=== PATIENT | male | born 1990 | race Caucasian/White ===

== ENCOUNTER 2020-07-06 17:27 | Inpatient (IN) | payer OTHER ==
[2020-07-06 18:15] LABS: #Basophils 0.1 10x3/uL (0.0-0.2); #Monocytes 1.1 10x3/uL (0.0-1.1); #Neutrophils 15.7 10x3/uL (1.5-8.4); %Basophils 0.3 % (0.0-2.0); %Monocytes 6.2 % (0.0-10.0); %Neutrophils 89.8 % (40.0-75.0); Hemoglobin 15.1 g/dL (13.5-17.5); Mean Corpuscular Hemoglobin 32.3 pg (27.0-33.0); Mean Corpuscular Volume 92.3 fl (81.2-95.1); Mean Platelet Volume 10.6 fl (7.4-10.4); Platelet Count 76 10x3/uL (150-450); RBC Distribution Width 14.7 % (11.5-14.5); Red Blood Cell (RBC) Count 4.68 10x6/uL (4.32-5.72); White Blood Cell (WBC) Count 17.4 10x3/uL (3.5-10.5)
[2020-07-06 18:20] LABS: ALT (SGPT) 47 U/L (8-55); AST (SGOT) 65 U/L (5-34); Alkaline Phosphatase 72 U/L (40-110); Anion Gap 20 mmol/L (10-20); BUN (Urea Nitrogen) 23 mg/dL (8.9-20.6); Bilirubin, Total 1.2 mg/dL (0.2-1.2); Calc. Creatinine Clearance 0 mL/min (70-130); Calcium 8.6 mg/dL (7.8-10.44); Carbon Dioxide 17 mmol/L (22-29); Chloride 101 mmol/L (98-107); Glucose 140 mg/dL (70-105); Potassium 3.5 mmol/L (3.5-5.1); Sodium 134 mmol/L (136-145)
[2020-07-06] MEDS ORDERED: Ondansetron PF 4 MG/2 ML Vial ONE (18:45)
[2020-07-06] MEDS ORDERED: cefTRIAXone\\ROCEPHIN 1 GM VIAL ONE (18:46)
[2020-07-06] MEDS ORDERED: Pantoprazole 40 MG VIAL ONE ×2 (18:46→18:50)
[2020-07-06] MEDS ORDERED: Octreotide Acetate 50 MCG/ML AMP ONE (18:47)
[2020-07-06] MEDS ORDERED: Octreotide Acetate 100 MCG/ML VIAL ONE ×3 (18:47→18:58)
[2020-07-06 20:35] LABS: SARS-CoV-2 NAA Rapid Test Not Detected (NotDetected)
[2020-07-06] MEDS ORDERED: Pantoprazole 80 MG in Sodium Chloride 0.9% 100 ML IVP SCH (21:00)
[2020-07-06 21:12] LABS: INR-International Normal Ratio 1.3; PTT 35.3 sec (22.0-33.0); Prothrombin Time 14.1 sec (9.5-12.1)
[2020-07-06 21:32] LABS: Hemoglobin 13.8 g/dL (13.5-17.5)
[2020-07-06] MEDS ORDERED: GoLYTELY 4,000 ml Bottle PO SCH (22:00)
[2020-07-06 22:04] VITALS: BMI 27.8
[2020-07-06] MEDS ORDERED: Octreotide Acetate 1,250 MCG in Sodium Chloride 0.9% 250 ML 250 ML IVPB SCH ×2 (22:15→23:30)
[2020-07-06] MEDS ORDERED: Potassium Chloride 20 MEQ/100 ML PREMIX BAG IVPB SCH (22:15)
[2020-07-06] MEDS: Sodium Chloride 0.9% 1,000 ML IV SCH (23:34)
[2020-07-07] MEDS ORDERED: Ondansetron PF 4 MG/2 ML Vial IVP PRN (01:35)
[2020-07-07 04:30] LABS: Anion Gap 11 mmol/L (10-20); BUN (Urea Nitrogen) 15 mg/dL (8.9-20.6); Calc. Creatinine Clearance 132 mL/min (70-130); Calcium 7.7 mg/dL (7.8-10.44); Carbon Dioxide 22 mmol/L (22-29); Chloride 109 mmol/L (98-107); Glucose 131 mg/dL (70-105); Sodium 138 mmol/L (136-145)
[2020-07-07 04:36] LABS: #Monocytes 0.6 10x3/uL (0.0-1.1); #Neutrophils 6.5 10x3/uL (1.5-8.4); %Basophils 0.3 % (0.0-2.0); %Lymphocytes 4.8 % (18.0-47.0); %Neutrophils 86.5 % (40.0-75.0); Hemoglobin 13.5 g/dL (13.5-17.5); Mean Corpuscular HGB CONC 34.7 g/dL (32.0-36.0); Mean Corpuscular Hemoglobin 32.6 pg (27.0-33.0); RBC Distribution Width 14.9 % (11.5-14.5); Red Blood Cell (RBC) Count 4.14 10x6/uL (4.32-5.72); White Blood Cell (WBC) Count 7.5 10x3/uL (3.5-10.5)
[2020-07-07 04:37] LABS: Platelet Count 32 10x3/uL (150-450)
[2020-07-07 04:38] LABS: Platelet Morphology Comment Appears Decreased
[2020-07-07] MEDS: Sodium Chloride 0.9% 1,000 ML IV SCH ×2 (09:00→11:58)
[2020-07-07 11:21] LABS: Hemoglobin 12.6 g/dL (13.5-17.5); Mean Corpuscular HGB CONC 33.8 g/dL (32.0-36.0); Mean Corpuscular Hemoglobin 32.1 pg (27.0-33.0); Mean Corpuscular Volume 95.2 fl (81.2-95.1); Platelet Count 31 10x3/uL (150-450); RBC Distribution Width 15.1 % (11.5-14.5); Red Blood Cell (RBC) Count 3.92 10x6/uL (4.32-5.72); White Blood Cell (WBC) Count 5.4 10x3/uL (3.5-10.5)
[2020-07-07 11:51] LABS: Eosinophils 1 % (0-10); Lymphocytes 10 % (21-51); Monocytes 14 % (0-10)
[2020-07-07 11:56] LABS: MDiff Complete? YES; Neutrophil 75 % (42-75)
[2020-07-07 11:58] LABS: RBC Morphology Normal
[2020-07-07 11:59] LABS: Platelet Morphology Comment Appears Decreased
[2020-07-07] MEDS ORDERED: PROPOFOL 40 ML ONE (12:10)
[2020-07-07] MEDS ORDERED: Lidocaine 1% PF 5 ML VIAL ONE (12:11)
[2020-07-07] MEDS: cefTRIAXone\\ROCEPHIN 1 GM in Sodium Chloride 0.9% 100 ML IVPB SCH (19:53)
[2020-07-07] MEDS: Pantoprazole 40 MG VIAL IVP SCH (19:53)
[2020-07-08] MEDS: Sodium Chloride 0.9% 1,000 ML IV SCH ×2 (03:43→09:26)
[2020-07-08 05:08] LABS: #Eosinphils 0.1 10x3/uL (0.0-0.5); #Monocytes 0.5 10x3/uL (0.0-1.1); #Neutrophils 3.7 10x3/uL (1.5-8.4); %Basophils 0.2 % (0.0-2.0); %Eosinophils 1.5 % (0.0-6.0); %Lymphocytes 8.2 % (18.0-47.0); %Monocytes 10.8 % (0.0-10.0); %Neutrophils 78.9 % (40.0-75.0); Hemoglobin 12.5 g/dL (13.5-17.5); Mean Corpuscular HGB CONC 33.4 g/dL (32.0-36.0); Mean Corpuscular Hemoglobin 32.1 pg (27.0-33.0); Mean Corpuscular Volume 95.9 fl (81.2-95.1); Mean Platelet Volume 10.3 fl (7.4-10.4); Platelet Count 31 10x3/uL (150-450); RBC Distribution Width 14.9 % (11.5-14.5); White Blood Cell (WBC) Count 4.7 10x3/uL (3.5-10.5)
[2020-07-08 05:15] LABS: Iron 21 ug/dL (65-175); Iron Binding Capacity, Total 171 mcg/dL (261-462)
[2020-07-08 05:38] LABS: Ferritin 416.72 ng/mL (22-322); Hep B Surf Ag Non-Reactive S/CO (NonReactive)
[2020-07-08 05:57] LABS: HBSAg Index 0.26 S/CO (0-0.99)
[2020-07-08] MEDS: Pantoprazole 40 MG VIAL IVP SCH ×2 (08:58→20:18)
[2020-07-08 11:41] LABS: HBSAB Concentration Less than 8.00 mIU/mL; Hep B Core Total Ab Non-Reactive (NonReactive); Hep B Core Total Index 0.22 S/CO (0-0.79); Hep B Surf AB Non-Reactive (NonReactive); Hep C IgG Ab Non-Reactive (NonReactive); Hep C Index 0.12 S/CO (0-0.79)
[2020-07-08] MEDS: cefTRIAXone\\ROCEPHIN 1 GM in Sodium Chloride 0.9% 100 ML IVPB SCH (20:18)
[2020-07-09 04:17] LABS: #Eosinphils 0.1 10x3/uL (0.0-0.5); #Monocytes 0.6 10x3/uL (0.0-1.1); %Basophils 0.4 % (0.0-2.0); %Eosinophils 0.9 % (0.0-6.0); %Monocytes 11.6 % (0.0-10.0); %Neutrophils 75.3 % (40.0-75.0); Hemoglobin 12.9 g/dL (13.5-17.5); Mean Corpuscular HGB CONC 34.4 g/dL (32.0-36.0); Mean Corpuscular Hemoglobin 32.3 pg (27.0-33.0); Mean Platelet Volume 10.9 fl (7.4-10.4); RBC Distribution Width 14.3 % (11.5-14.5); Red Blood Cell (RBC) Count 3.99 10x6/uL (4.32-5.72); White Blood Cell (WBC) Count 5.3 10x3/uL (3.5-10.5)
[2020-07-09 04:18] LABS: Platelet Count 38 10x3/uL (150-450)
[2020-07-09 04:31] LABS: Anion Gap 12 mmol/L (10-20); BUN (Urea Nitrogen) 9 mg/dL (8.9-20.6); Calc. Creatinine Clearance 153 mL/min (70-130); Carbon Dioxide 22 mmol/L (22-29); Chloride 108 mmol/L (98-107); Glucose 95 mg/dL (70-105); Potassium 3.6 mmol/L (3.5-5.1); Sodium 138 mmol/L (136-145)
[2020-07-09 04:50] LABS: Calcium 7.9 mg/dL (7.8-10.44)
[2020-07-09] MEDS: Pantoprazole 40 MG VIAL IVP SCH ×2 (09:31→23:22)
[2020-07-09 12:15] LABS: ANA Symphony (Qualitative) Negative (Negative); ANA Symphony (Quantitative) 0.4 Ratio (< 0.7 Negative); EliA Vaculitis New Method **** NEW METHOD ****; Mitochondrial Ab 2.3 U/mL (<4 Negative); dsDNA IgG Antibody 6.6 IU/mL (<10 Negative)
[2020-07-09] MEDS: cefTRIAXone\\ROCEPHIN 1 GM in Sodium Chloride 0.9% 100 ML IVPB SCH (18:45)
[2020-07-09] MEDS ORDERED: Nadolol 40 MG TAB PO SCH (21:00)
[2020-07-10 07:03] LABS: Hemoglobin 12.8 g/dL (13.5-17.5); Mean Corpuscular HGB CONC 34.2 g/dL (32.0-36.0); Mean Corpuscular Hemoglobin 32.3 pg (27.0-33.0); Mean Corpuscular Volume 94.4 fl (81.2-95.1); Platelet Count 41 10x3/uL (150-450); RBC Distribution Width 14.1 % (11.5-14.5); Red Blood Cell (RBC) Count 3.96 10x6/uL (4.32-5.72); White Blood Cell (WBC) Count 4.4 10x3/uL (3.5-10.5)
[2020-07-10 07:19] LABS: ALT (SGPT) 189 U/L (8-55); AST (SGOT) 212 U/L (5-34); Albumin 3.2 g/dL (3.5-5.0); Alkaline Phosphatase 224 U/L (40-110); Anion Gap 12 mmol/L (10-20); BUN (Urea Nitrogen) 8 mg/dL (8.9-20.6); Bilirubin, Total 1.8 mg/dL (0.2-1.2); Calc. Creatinine Clearance 168 mL/min (70-130); Calcium 7.9 mg/dL (7.8-10.44); Carbon Dioxide 21 mmol/L (22-29); Chloride 108 mmol/L (98-107); Globulin 3.1 g/dL (2.4-3.5); Glucose 102 mg/dL (70-105); Potassium 3.4 mmol/L (3.5-5.1); Protein, Total 6.3 g/dL (6.0-8.3); Sodium 138 mmol/L (136-145)
[2020-07-10 08:06] LABS: MDiff Complete? YES
[2020-07-10 08:10] LABS: Band 5 % (5-11); Lymphocytes 6 % (21-51); Monocytes 9 % (0-10); Neutrophil 79 % (42-75); Reactive Lymphocytes 1 % (0-10)
[2020-07-10 08:14] LABS: Platelet Morphology Comment Appears Decreased
[2020-07-10 08:52] VITALS: BP 113/84; TEMP 98
[2020-07-10] MEDS ORDERED: Potassium Chloride 20 MEQ TAB PO SCH (10:30)
== END 2020-07-10 12:50 | disposition home or self-care (01) | DRG 368 ==
LOC: CSHERS 17:27 → CSHICU 21:35 → CSHTELE 07-09 14:52
PROVIDERS: ADMIT Family Medicine; ATTEND Internal Medicine
PROC: 06L38CZ Occlusion of Esophageal Vein with Extraluminal Device, Via Natural or Artificial Opening Endoscopic (ICD-10-PCS; principal; 2020-07-07)
PROC: 0W3P8ZZ Control Bleeding in Gastrointestinal Tract, Via Natural or Artificial Opening Endoscopic (ICD-10-PCS; 2020-07-07)
PROC: 0DJD8ZZ Inspection of Lower Intestinal Tract, Via Natural or Artificial Opening Endoscopic (ICD-10-PCS; 2020-07-07)
DX: I85.01 Esophageal varices with bleeding (principal); I81 Portal vein thrombosis; F84.0 Autistic disorder; K76.6 Portal hypertension; R65.10 Systemic inflammatory response syndrome (SIRS) of non-infectious origin without acute organ dysfunction; Z20.822 Contact with and (suspected) exposure to COVID-19; Q90.9 Down syndrome, unspecified; Z86.718 Personal history of other venous thrombosis and embolism; Z90.89 Acquired absence of other organs; K64.9 Unspecified hemorrhoids; K31.89 Other diseases of stomach and duodenum; D69.6 Thrombocytopenia, unspecified; A08.4 Viral intestinal infection, unspecified; R50.9 Fever, unspecified
CPT/HCPCS: 0240U; 36415; 74178; 76705; 80048; 80053; 82103; 82105; 82390; 82728; 83516; 83540; 83550; 83630; 83690; 83735; 85025; 85610; 85730; 86038; 86225; 86403; 86704; 86706; 86803; 86850; 86900; 86901; 87045; 87046; 87077; 87324; 87340; 87427; 87449; 88305; 93005; 93010; 96365; 96367; 96375; 96376; C9113; J0696; J2354; J2405; J2704; J3480; J3490; J7050